=== PATIENT | male | born 2000 | race Caucasian/White ===

== ENCOUNTER 2022-03-13 01:36 | Emergency (ER) | payer SELFPAY ==
[~2022-03-13] VITALS: Ht 182.9 cm; Wt 78.0 kg
[2022-03-13] MEDS ORDERED: TETANUS, DIPHTHERIA, PERTUSSIS VAC/PF 0.5ML (>10YR OLD) IM ONE (02:15)
[2022-03-13] MEDS ORDERED: HYDROCODONE/ACETAMINOPHEN 5/325MG TABLET PO PRN (02:15)
[2022-03-13 04:23] VITALS: BP 113/66
[2022-03-13] MEDS ORDERED: IBUP-2029 MT (05:00)
== END 2022-03-13 08:11 | disposition home or self-care (01) ==
LOC: ER 01:36
DX: S80.212A Abrasion, left knee, initial encounter (principal); S50.312A Abrasion of left elbow, initial encounter; S50.311A Abrasion of right elbow, initial encounter; V49.49XA Driver injured in collision with other motor vehicles in traffic accident, initial encounter; Y93.89 Activity, other specified; Y92.89 Other specified places as the place of occurrence of the external cause; Y99.8 Other external cause status; M25.521 Pain in right elbow; M25.522 Pain in left elbow
CPT/HCPCS: 70450; 73080; 73562; 73620; 99284; Z7610; 90715